=== PATIENT | female | born 1970 | race Caucasian/White ===

== ENCOUNTER 2016-11-18 05:48 | Outpatient (CLI) | payer BC ==
[~2016-11-18] VITALS: Ht 162.6 cm; Wt 77.1 kg
[2016-11-18] MEDS ORDERED: RT-ALBUINH IH (09:03)
[2016-11-18] MEDS ORDERED: OMEP40CA36 PO (09:03)
[2016-11-18] MEDS ORDERED: FLT11013 IH (09:03)
== END 2016-11-18 09:08 ==
LOC: PREOP 05:48
PROVIDERS: ATTEND Surgery Pediatric Surgery
DX: Z01.818 Encounter for other preprocedural examination (principal); K22.70 Barrett's esophagus without dysplasia; R10.11 Right upper quadrant pain

== ENCOUNTER 2016-11-20 11:10 | Day surgery (SDC) | payer BC ==
[~2016-11-20] VITALS: Ht 162.6 cm; Wt 77.1 kg
[~2016-11-20 11:10] MED LIST: FLT11013 IH; OMEP40CA36 PO; RT-ALBUINH IH
--- OUTSIDE RECORDS SUMMARY | 2016-11-20 11:14 | XMS REPORT | Continuity of Care Document ---
Author Author [facility] Organization [facility] Address Unknown Phone Unavailable Allergies Active Description Code Type Severity Reaction Onset Reported/Identified Relationship to Patient Clinical Status Yes No Known Allergies [id number] Drug Allergy Unknown N/A 12/05/2014 Medications Problems Date Dx Coded Attending Type Code Diagnosis Diagnosed By 11/05/2014 CLEOPATRA WHEELER, JOSE DE JESUS Arreguin Ot 719.45 11/09/2014 CLEOPATRA WHEELER, JOSE DE JESUS Arreguin Ot 493.90 11/09/2014 CLEOPATRA WHEELER, JOSE DE JESUS Arreguin Ot 786.05 12/05/2014 JOSE DE JESUS WHELAN MD Ot 493.90 12/05/2014 CLEOPATRA WHEELER, JOSE DE JESUS Arreguin Ot 786.05 12/05/2014 JOSE DE JESUS WHELAN MD Ot 719.45 01/15/2015 Ot 789.00 11/19/2016 BARB WHEELER, ALESSANDRO Ot K22.70 BISHOP'S ESOPHAGUS WITHOUT DYSPLASIA 11/19/2016 ALESSANDRO DAY MD Ot R10.11 RIGHT UPPER QUADRANT PAIN 11/19/2016 ALESSANDRO DAY MD Ot Z01.818 ENCOUNTER FOR OTHER PREPROCEDURAL EXAMIN Procedures Results Encounters ACCT No. Visit Date/Time Discharge Status Pt. Type Provider Facility Loc./Unit Complaint [id number] 11/18/2016 05:48:00 2016 09:08:00 DIS Outpatient ALESSANDRO DAY MD [facility] PREOP REFLUX;RUQ PAIN [id number] 10/17/2014 08:14:00 2014 23:59:59 CLS Outpatient JOSE DE JESUS WHELAN MD [facility] RT [id number] 10/10/2014 10:56:00 2013 23:59:59 CLS Outpatient JOSE DE JESUS WHELAN MD [facility] RAD [id number] 12/05/2014 09:32:00 Document Registration
--- OUTSIDE RECORDS SUMMARY | 2016-11-20 11:15 | XMS REPORT | Continuity of Care Document ---
Author Author [facility] Organization [facility] Address Unknown Phone Unavailable Allergies Active Description Code Type Severity Reaction Onset Reported/Identified Relationship to Patient Clinical Status Yes No Known Allergies [id number] Drug Allergy Unknown N/A 12/05/2014 Medications Problems [...] Status Pt. Type Provider Facility Loc./Unit Complaint [id number] 11/18/2016 05:48:00 2016 09:08:00 DIS Outpatient ALESSANDRO DAY MD [facility] PREOP REFLUX;RUQ PAIN [id number] 10/17/2014 08:14:00 2014 23:59:59 CLS Outpatient JOSE DE JESUS WHELAN MD [facility] RT [id number] 10/10/2014 10:56:00 2013 23:59:59 CLS Outpatient JOSE DE JESUS WHELAN MD [facility] RAD [id number] 12/05/2014 09:32:00 Document Registration
--- NOTE | 2016-11-20 11:24 | Conscious Sedation/ASA ---
Conscious Sedation Pre-Proced Time Reviewed: 11:20 ASA Class: 2 Airway Mallampati Classification: ([place] appropriate class) I. II. III, IV Lungs Heart ASA score ASA 1: a normal healthy patient ASA 2: a patient with a mild systemic disease (mid diabetes, controlled hypertension, obesity ASA 3: a patient with a severe systemic disease that limits activity (angina , COPD, prior Myocardial infarction) ASA 4: a patient with an incapacitating disease that is a constant threat to life (CHF, renal failure) ASA 5: a moribund patient not expected to survive 24 hrs. (ruptured aneurysm) ASA 6: a declared brain patient whose organs are being harvested. For emergent operations, add the letter E after the classification Grade 2 Sedation Plan: Analgesia, Amnesia, Plan communicated to team members, Discussed options with patient/fam, Discussed risks with patient/fam Note The patient is an appropriate candidate to undergo the planned procedure, sedation, and anesthesia. The patient immediately re-assessed prior to indication. ALESSANDRO DAY MD Nov 20, 2016 11:24 am
--- NOTE | 2016-11-20 11:25 | Progress Note-Pre Operative ---
Pre-Operative Progress Note H&P Reviewed The H&P was reviewed, patient examined and no changes noted. Date H&P Reviewed: Nov 20, 2016 Time H&P Reviewed: 11:20 Pre-Operative Diagnosis: GERD, Hx Hines's ALESSANDRO DAY MD Nov 20, 2016 11:25 am
[2016-11-20] MEDS ORDERED: HURRICAINE EXT TUBE (BENZOCAINE) XX PRN (11:30)
[2016-11-20] MEDS ORDERED: FLUMAZENIL (ROMAZICON) 0.1 MG/ML 5 ML VIAL INJ PRN (11:30)
[2016-11-20] MEDS ORDERED: NALOXONE 0.4 MG/ML 1 ML (NARCAN) VIAL IVP PRN (11:30)
[2016-11-20] MEDS ORDERED: morphine INJ 10 MG/ML 1ML (SYR OR VIAL) IV PRN (11:30)
[2016-11-20] MEDS ORDERED: LIDOCAINE JELLY 2% (XYLOCAINE) 5 ML TUBE MM PRN (11:30)
[2016-11-20] MEDS ORDERED: ONDANSETRON 4 MG/2 ML (SDV) Z0FRAN IV PRN (11:30)
[2016-11-20] MEDS ORDERED: HYDROcodone/APAP 5 MG/325 MG (LORTAB) TAB PO PRN (11:30)
[2016-11-20] MEDS ORDERED: ACETAMINOPHEN 325 MG TABLET/CAPLET (TYLENOL) PO PRN (11:30)
[2016-11-20] MEDS ORDERED: NS IV 500 ML 500 ML IV SCH (11:30)
[2016-11-20] MEDS ORDERED: LIDOCAINE JELLY 2% (XYLOCAINE) 5 ML TUBE ONE (11:47)
[2016-11-20] MEDS ORDERED: MIDAZOLAM 2 MG/2 ML (VERSED) VIAL ONE ×5 (11:47→11:48)
[2016-11-20] MEDS ORDERED: HURRICAINE EXT TUBE (BENZOCAINE) ONE (11:48)
[2016-11-20 11:52] VITALS: BP 133/90
[2016-11-20] MEDS: fentaNYL INJECTION 100 MCG/2 ML AMP IVP PRN ×2 (11:57→12:00)
[2016-11-20] MEDS: MIDAZOLAM 2 MG/2 ML (VERSED) VIAL IVP PRN ×5 (11:58→12:16)
--- NOTE | 2016-11-20 12:39 | Progress Note-Post Operative ---
Post-Operative Progess Note Pre-Operative Diagnosis GERD, Hx Hines's Post-Operative Diagnosis reflux esophagitis(class B-C), small recurrent HH(<1cm), moderate-severe gastritis with small ulcer(1-2mm) Post-Op Procedure Note Date of Procedure: Nov 20, 2016 Name of Procedure: EGD with bx Anesthesia Type CS Estimated blood loss (mL): minimal Specimen(s) collected antrum, GE cliffordn ALESSANDRO DAY MD Nov 20, 2016 12:39 pm
[2016-11-20] MEDS ORDERED: PANT40TA2 PO (12:43)
[2016-11-20] MEDS ORDERED: SUCR1TAB36 PO (12:43)
--- NOTE | 2016-11-20 12:44 | Discharge Inst-Surgical ---
D/C Lap Instructions-KIDO New, Converted, or Re-Newed RX: RX on Chart Follow Up 1 yr Activity as tolerated High Fiber Diet 25g or more per day Avoid Alcohol, Caffeine, Spicy Hoven and Acid foods. Drink 64 fluid oz or more of fluids per day. Symptoms to Report: Fever over 101 degree F, Nausea/Vomiting If any problems/questions: Contact your physician or go to Emergency Room ALESSANDRO DAY MD Nov 20, 2016 12:44 pm
[2016-11-20 12:50] VITALS: BP 111/74
[2016-11-20 13:20] VITALS: BP 117/78
[2016-11-20 13:27] VITALS: BP 117/78
--- NOTE | 2016-11-22 09:13 | OPERATIVE REPORT ---
PROCEDURE PHYSICIAN: ALESSANDRO LOCKHART DATE OF PROCEDURE: 11/20/2016 ATTENDING PRIMARY CARE PHYSICIAN: Dr. Gabino Ma. PREOPERATIVE DIAGNOSIS: Recurrent gastroesophageal reflux disease with history of Hines's esophagus. POSTOPERATIVE DIAGNOSES: Reflux esophagitis, between class B and C. There were no ulcers or strictures. There is an intact wrap with a very small recurrent hiatal hernia less than 1 cm in size. There was a moderate to severe gastritis with 2 small ulcerations, which were small and approximately 1 to 2 mm in size. PROCEDURE: EGD with biopsy. SURGEON: Dr. Lockhart. ANESTHESIA: Conscious sedation. ESTIMATED BLOOD LOSS: Minimal. FINDINGS: 1. Reflux esophagitis, between class B and C. 2. No ulcers or strictures. 3. Small recurrent hiatal hernia, less than 1 cm in size. 4. Mild to moderate gastritis with 2 to 3 small antral ulcers approximately 1 to 2 mm in size. 5. The pylorus and duodenum appeared normal. DISPOSITION: The patient tolerated the procedure well. Ms. Jessica Montoya is a 46-year-old female with pain in the right upper abdominal quadrant, as well as epigastric region with a bloating sensation as well. She has had these symptoms for the past few years; however, in the past few months had become much more significant. 2 years ago she did have an gallbladder ultrasound, which was normal and no stones identified. A HIDA was then performed, which showed an ejection fraction of 70% and she did not have any symptoms at that time. She has had issues with gastroesophageal reflux disease and also biopsy proven Hines's esophagus. She underwent laparoscopic [place] gastropexy in 2003. She had a repeat EGD done in 2009 and was found to have a mild, chronic gastritis, as well as a reflux esophagitis. She reports that this discomfort is worse with different types of foods. She does not report any dysphagia at this time. PROCEDURE: The patient was brought to the endoscopy suite, laid in the left lateral decubitus position. After adequate IV pain and sedative medications and conscious sedation anesthesia, the mouthpiece was applied. The endoscope was then placed in the mouth, visualizing the pharynx and hypopharyngeal region. Vocal cords, epiglottis and vallecula identified and appeared to be normal. The endoscope was then gently intubated in the esophageal opening and the esophagus insufflated. The endoscope was advanced through the first, second, and 3rd portions esophagus. At the level of the GE junction there was a reflux esophagitis, between class B and C. The GE junction also appeared to be moving cephalad in an irregular pattern consistent with a clinical Hines's esophagus. Biopsies were taken with forceps with visualization of good hemostasis. There were no ulcers or strictures identified in this region. The endoscope was then easily advanced into the stomach and endoscope retroflexed visualizing a small recurrent hiatal hernia, less than 1 cm in size. The previous wrap appeared to be intact. A moderate to severe gastritis was noted towards the stomach antrum with 2 small ulcerations identified which were less than 2 mm in size. A biopsy was taken of one of these using forceps with visualization of good hemostasis. The endoscope was then advanced through the pylorus and first and second portions of duodenum which appeared normal with no distal obstructions. The endoscope was slowly withdrawn while taking a second look and suctioning of residual air with no additional findings. The patient tolerated the procedure well. We will await the biopsy results however treat her with Protonix 40 mg daily, as well as Carafate 1 gram q.i.d. for the next 2 weeks then on a p.r.n. basis. We will also recommend the necessary lifestyle and diet accommodation including smaller, more frequent meals, avoidance of eating at night, as well as head elevation while lying supine. She also needs to avoid caffeinated beverages, spicy, greasy and acidic foods. If she continues to have symptoms of right upper abdominal quadrant pain after meals, she may have developing gallbladder issues and we will repeat the work-up process for this as well. Job ID: [id number] Dictated Date: 11/20/2016 12:45:27 Seat Scooper Machine Date: 11/22/2016 09:03:54 / alvarez BAE
== END 2016-11-20 13:25 | disposition home or self-care (01) ==
LOC: ENDO 11:10
PROVIDERS: ATTEND Surgery Pediatric Surgery
DX: K21.0 Gastro-esophageal reflux disease with esophagitis (principal); K44.9 Diaphragmatic hernia without obstruction or gangrene; K29.70 Gastritis, unspecified, without bleeding; K25.9 Gastric ulcer, unspecified as acute or chronic, without hemorrhage or perforation
CPT/HCPCS: 84703; 88305

== ENCOUNTER → 2017-04-23 | Outpatient (CLI) | payer BC ==
[~2017-04-23] MED LIST changes: +CATHETER FLUSH 10 ML SYR IV PRN; +PANT40TA2 PO; +SUCR1TAB36 PO
--- NOTE | 2017-04-23 18:06 | Diagnostic Imaging Report ---
INDICATION: Right upper quadrant pain. TECHNIQUE: Patient received 5.4 mCi technetium 99m Choletec. Sequential imaging was performed. Following confirmation of activity within the gallbladder and the bile ducts, the patient then received Ensure plus, orally, for gallbladder stimulation. Gallbladder ejection fraction was then quantified. FINDINGS: There is prompt homogenous uptake throughout the liver parenchyma. Activity could be seen within the gallbladder within 10 minutes time. With stimulation, there was vigorous gallbladder contraction. The ejection fraction was 93%. No evidence for cystic or common duct obstruction. IMPRESSION: Normal hepatobiliary scan and normal gallbladder ejection fraction. Dictated by: Dictated on workstation # [id number]
== END ==
LOC: CARD 11:41
PROVIDERS: ATTEND Family Medicine
DX: R10.11 Right upper quadrant pain (principal)
CPT/HCPCS: 78227

== ENCOUNTER 2020-11-26 05:56 | Outpatient (RCR) | payer BC ==
[~2020-11-26] VITALS: Ht 162.6 cm; Wt 80.9 kg
[~2020-11-26 05:56] MED LIST changes: -CATHETER FLUSH 10 ML SYR IV PRN; +OMEP40CA27 PO; -OMEP40CA36 PO
[2020-11-26] MEDS ORDERED: OMEP40CA27 PO (11:56)
== END 2020-11-29 11:43 | disposition home or self-care (01) ==
LOC: PREOP 05:56
PROVIDERS: ATTEND Surgery
DX: Z01.818 Encounter for other preprocedural examination (principal)

== ENCOUNTER 2020-12-03 07:37 | Day surgery (SDC) | payer BC ==
[~2020-12-03] VITALS: Ht 162.6 cm; Wt 80.9 kg
[2020-12-03] MEDS ORDERED: LACTATED RINGERS 1,000 ML IV ONE (07:42)
[2020-12-03] MEDS ORDERED: LACTATED RINGERS 1,000 ML IV STA (07:45)
[2020-12-03] MEDS ORDERED: HURRICAINE EXT TUBE (BENZOCAINE) XX PRN (07:45)
[2020-12-03 08:03] VITALS: BP 166/99
[2020-12-03] MEDS ORDERED: PROPOFOL INJECTION 50 ML IV ONE ×2 (08:13→09:12)
[2020-12-03] MEDS ORDERED: MIDAZOLAM 2 MG/2 ML (VERSED) VIAL ONE (08:13)
[2020-12-03] MEDS ORDERED: HURRICAINE EXT TUBE (BENZOCAINE) ONE (08:24)
--- NOTE | 2020-12-03 08:29 | Progress Note-Pre Operative ---
Pre-Operative Progress Note H&P Reviewed The H&P was reviewed, patient examined and no changes noted. Date Seen by Provider: Dec 03, 2020 Time Seen by Provider: 08:28 Date H&P Reviewed: Dec 03, 2020 Time H&P Reviewed: 08:28 Pre-Operative Diagnosis: gerd, screening colonoscopy MIRELLA LUNA DO Dec 03, 2020 08:29
[2020-12-03 09:40] VITALS: BP_SYST 115; BP_SYST 150; BP_DIAS 56; BP_DIAS 70
--- NOTE | 2020-12-03 09:48 | Progress Note-Post Operative ---
Post-Operative Progess Note Surgeon (s)/Personal Injury Legal Assistant (s) Surgeon MIRELLA LUNA DO Personal Injury Legal Assistant: na Pre-Operative Diagnosis gerd, screening colonoscopy Post-Operative Diagnosis hiatal hernia, gastric polyp, colon polyp, rectal polyp, diverticulosis Procedure & Operative Findings Date of Procedure 12/03/20 Procedure Performed/Findings egd c biopsies and snare polypectomy gastric polyp, colonoscopy c hot bx polypectomy x 2 Anesthesia Type per retail loan originator assistant Estimated Blood Loss Estimated blood loss (mL): scant Specimens/Packing Specimens Removed antrum, gastric polyp, ge, sigmoid and rectal polyp MIRELLA LUNA DO Dec 03, 2020 09:48
[2020-12-03] MEDS ORDERED: ONDANSETRON 4 MG/2 ML (SDV) Z0FRAN ONE (09:49)
--- NOTE | 2020-12-03 09:50 | Discharge Inst-Simple/Standard ---
Discharge Inst-Standard Patient Instructions/Follow Up Plan of Care/Instructions/FU: 2 weeks [place] Activity as Tolerated: Yes Discharge Diet: Regular Diet (high fiber) MIRELLA LUNA DO Dec 03, 2020 09:50
[2020-12-03] MEDS ORDERED: ONDANSETRON 4 MG/2 ML (SDV) Z0FRAN IVP ONE (10:00)
--- NOTE | 2020-12-03 10:01 | Anesthesia-General Post-Op ---
MAC Patient Condition Mental Status/LOC: Same as Preop Cardiovascular: Satisfactory Nausea/Vomiting: Absent Respiratory: Satisfactory Pain: Controlled Complications: Absent Post Op Complications Complications None Follow Up Care/Instructions Patient Instructions None needed. Anesthesiology Discharge Order Discharge Order Patient is doing well, no complaints, stable vital signs, no apparent adverse anesthesia problems. No complications reported per nursing. CASSIE LOPEZ CRNA Dec 03, 2020 10:01
[2020-12-03 10:10] VITALS: BP 142/89
[2020-12-03 10:17] VITALS: BP 142/89
--- NOTE | 2020-12-03 13:57 | OPERATIVE REPORT ---
DATE OF SERVICE: 12/03/2020 PREOPERATIVE DIAGNOSES: Gastroesophageal reflux disease, screening colonoscopy. POSTOPERATIVE DIAGNOSES: Hiatal hernia, gastric polyp, colon polyp, rectal polyp, diverticulosis. PROCEDURE: EGD with biopsies and snare polypectomy of gastric polyp, colonoscopy with hot biopsy polypectomy x2. SURGEON: Mirella Coles DO ANESTHESIA: Per BLOW OFF WORKER. ESTIMATED BLOOD LOSS: Scant. COMPLICATIONS: None. INDICATIONS: The patient is a 50-year-old female needing screening colonoscopy and has GERD symptoms. She understands risks and benefits of procedure and wished to proceed with procedure. Consent was signed in the chart. DESCRIPTION OF PROCEDURE: The patient was taken to the endoscopy suite, placed in left lateral recumbent position. Timeout was performed. Scope was inserted in mouth, down the esophagus, stomach and into the duodenum without difficulty. There were no polyps, masses or ulcerations within the duodenum. Scope was slowly retracted back to the stomach where it was further insufflated. No polyps, masses or ulcerations within the antrum. Biopsy was obtained. Scope was slowly retracted back. Body of stomach, slightly larger polyp, which snare polypectomy was performed. Could not be suctioned, therefore scope was withdrawn until completely removed. Scope was reinserted into the stomach where it was further insufflated. Scope was also retroflexed noting a hiatal hernia, small. No other pathology. Scope was returned to its normal position, slowly withdrawn to distal esophagus. Biopsy of the GE junction was obtained. Scope was then slowly retracted back until completely removed, noting no other pathology. Digital rectal exam was performed. There were no palpable polyps, masses or ulcerations. Scope was inserted in the rectum, advanced all the way to cecum with minimal difficulty. Prep was adequate. Scope was then slowly retracted back. The ileocecal valve was intubated. Terminal ileum had normal appearance. Scope was retracted back into the colon. No polyps, masses or ulcerations in the cecum. Prep was adequate. Scope was then slowly retracted back. No polyps, masses or ulcerations within the ascending, transverse, descending colon. A minimal amount of diverticulosis in the sigmoid colon and a very small polyp, which hot biopsy polypectomy was performed. Scope was then continuously retracted back into the rectum with a small polyp, which hot biopsy polypectomy was performed. Scope was retroflexed noting no other pathology. Scope was returned to its normal position, slowly withdrawn until completely removed. The patient tolerated procedure well without any complications. She was taken to recovery room in stable condition. RECOMMENDATIONS: Continue on current medications. We will recommend repeat colonoscopy in five years. If any issues before that will be seen at that time. We would also recommended high fiber diet due to diverticulosis. Job ID: [id number] DocumentID: [id number] Dictated Date: 12/03/2020 09:53:38 Wire Harness Assembler Date: 12/03/2020 13:56:40 Dictated By: MIRELLA COLES DO
== END 2020-12-03 10:30 | disposition home or self-care (01) ==
LOC: ENDO 07:37
PROVIDERS: ATTEND Surgery
DX: Z12.11 Encounter for screening for malignant neoplasm of colon (principal); K31.7 Polyp of stomach and duodenum; K21.9 Gastro-esophageal reflux disease without esophagitis; K44.9 Diaphragmatic hernia without obstruction or gangrene; K63.5 Polyp of colon; K62.1 Rectal polyp; K57.30 Diverticulosis of large intestine without perforation or abscess without bleeding; J45.909 Unspecified asthma, uncomplicated; Z79.51 Long term (current) use of inhaled steroids; Z79.899 Other long term (current) drug therapy
CPT/HCPCS: 84703